=== PATIENT | female | born 1995 | race Caucasian/White ===

== ENCOUNTER → 2016-07-10 | Outpatient (CLI) | payer OTHER ==
[2016-07-13 00:03] LABS: MUMPS IgG VALUE 2.86; QUANTIFERON NIL 0.08 IU/ML
== END | disposition home or self-care (01) ==
LOC: C.LAB 16:06
PROVIDERS: ATTEND Nurse Practitioner Adult Health
DX: Z71.1 Person with feared health complaint in whom no diagnosis is made (principal)